=== PATIENT | male | born 1965 | race Hispanic/Latino ===

== ENCOUNTER 2019-11-24 11:06 | Inpatient (IN) | payer MEDICARE, OTHER ==
[~2019-11-24 11:06] MED LIST: EPHEDRINE 25 MG/5 ML SYRINGE ONE; Heparin 10,000 UNITS/ 10 ML VIAL ONE; PROPOFOL 200 MG/20 ML VIAL ONE
[2019-11-24 11:41] LABS: #Basophils 0.1 thou/uL (0.0-0.2); #Eosinphils 0.2 thou/uL (0.0-0.7); #Lymphocytes 3.1 thou/uL (1.20-3.40); #Monocytes 0.7 thou/uL (0.11-0.59); #Neutrophils 5.9 thou/uL (1.40-6.50); %Basophils 0.8 % (0.0-1.0); %Monocytes 6.6 % (0.0-10.0); %Neutrophils 59.6 % (42.0-75.0); Hemoglobin 12.7 g/dL (14.0-18.0); Mean Corpuscular HGB CONC 32.1 g/dL (32.0-36.0); Mean Corpuscular Hemoglobin 29.2 pg (27.0-31.0); Mean Corpuscular Volume 90.8 fL (78.0-98.0); Mean Platelet Volume 9.4 fL (7.4-10.4); Platelet Count 223 thou/uL (130-400); RBC Distribution Width 11.5 % (11.5-14.5); Red Blood Cell (RBC) Count 4.35 mill/uL (4.70-6.10)
[2019-11-24 12:13] LABS: ALT (SGPT) 21 U/L (8-55); AST (SGOT) 18 U/L (5-34); Alkaline Phosphatase 150 U/L (40-110); Anion Gap 16 mmol/L (10-20); BUN (Urea Nitrogen) 37 mg/dL (8.4-25.7); Bilirubin, Total 0.5 mg/dL (0.2-1.2); Calc. Creatinine Clearance 0 mL/min (70-130); Calcium 8.4 mg/dL (7.8-10.44); Carbon Dioxide 16 mmol/L (22-29); Chloride 114 mmol/L (98-107); Estimated GFR-MDRD 14; Globulin 3.3 g/dL (2.4-3.5); Glucose 89 mg/dL (70-105); Potassium 5.6 mmol/L (3.5-5.1); Protein, Total 7.3 g/dL (6.0-8.3); Sodium 140 mmol/L (136-145)
--- NOTE | 2019-11-24 12:19 | RAD ---
SINGLE VIEW CHEST: Date: 11/24/2019 COMPARISON: None. HISTORY: Hyperkalemia and dyspnea. FINDINGS: Single view of the chest shows an enlarged cardiomediastinal silhouette. The patient is status post s ternotomy. There is a small right pleural effusion with adjacent atelectasis. No masses are seen. No pneumothorax is present. IMPRESSION: Right pleural effusion with adjacent atelectasis. POS: EAA
[2019-11-24] MEDS ORDERED: CEFAZOLIN 2 GM in Premix Bag 1 BAG IVPB SCH (13:30)
[2019-11-24] MEDS ORDERED: Bupivacaine PF 0.5% 30 ML VIAL ONE (13:39)
[2019-11-24] MEDS ORDERED: Lidocaine 1% w/Epinephrine 1:100K 20 ML VIAL ONE (13:39)
[2019-11-24] MEDS ORDERED: Heparin 10,000 UNITS/ 10 ML VIAL ONE ×2 (13:40→14:48)
[2019-11-24] MEDS ORDERED: Lidocaine 2% PF 5 ML VIAL ONE (13:42)
[2019-11-24] MEDS ORDERED: Sodium Chloride 0.9% 0 ML ONE (13:43)
[2019-11-24 14:07] LABS: Troponin I 0.018 ng/mL (< 0.028)
--- NOTE | 2019-11-24 14:07 | CON ---
DATE OF CONSULTATION: 11/24/2019 HISTORY OF PRESENT ILLNESS: Mr. Maurice Dubon is a 54-year-old male, followed by Dr. Jain in the past few months for chronic kidney disease. He has diabetes mellitus type 2, on p.r.n. insulin sliding scale, and hypertension. He lives in [place] with his brother. The patient is disabled. The patient presented with hyperkalemia, potassium 6.7, treated, transferred here. Repeat potassium 5.6, CO2 is 16. He is slightly dyspneic. Dr. Jain has asked me to see him regarding placement of dialysis catheter. He has a left antecubital IV which I removed. He has had previous coronary bypass grafting, left radial artery harvest at [facility]. The patient is asymptomatic from coronary artery disease. Plan is for rapid COVID screen, which I have gained approval for and plan is to go to the operating room for a cuffed tunneled hemodialysis catheter and a central line today and tomorrow, most likely a right arm fistula. Examination of his arms reveals poor venous structures. Might have to consider peritoneal dialysis or prosthetic graft. We will discuss with Dr. Jain. ALLERGIES: NONE. SOCIAL HISTORY: Tobacco none. Alcohol none. PAST SURGICAL HISTORY: Coronary artery bypass graft in 2015 in [place] followed by cell tower climber there. PAST MEDICAL HISTORY: Type 2 diabetes mellitus, hypertension. He is on disability, lives with his brother in [place]. Primary care physician is Dr. Barrow in [place]. The patient reports mild dyspnea, progressive. PHYSICAL EXAMINATION: VITAL SIGNS: Blood pressure 140/78, respiratory rate 18, heart rate 68. HEAD, EARS, EYES, NOSE AND THROAT: Unremarkable. LUNGS: Clear to auscultation. CARDIAC: Regular rate and rhythm. ABDOMEN: Soft, nontender. No obvious hernias. EXTREMITIES: No edema. Palpable radial artery right. Radial artery harvest scar, left forearm. Sternotomy scar. ASSESSMENT AND PLAN: 1. Hyperkalemia, treated medically. Mild acidosis. Plan rapid COVID screen, placement of hemodialysis catheter cuff tunneled today and central line. He understands the risks and benefits, and consents. 2. Radial artery harvest scar, left. Plan, right arm primary fistula. May ask him to consider peritoneal dialysis pending vein mapping. My plan is tomorrow or early next week. 3. Diabetes mellitus. 4. Hypertension. LABORATORY DATA: White count 10 and hemoglobin 12. BUN 37, creatinine 4.53, GFR 14, potassium 5.6. MEDICATIONS: No list available. hypertensive, diabetic medications. Job ID: [id number]
[2019-11-24] MEDS ORDERED: Sodium Chloride 0.9% 30 ML ONE (14:48)
[2019-11-24 14:54] LABS: SARS-CoV-2 NAA Rapid Test Not Detected (NotDetected)
[2019-11-24] MEDS ORDERED: Acetaminophen 650 MG Suppository PR PRN (15:12)
[2019-11-24] MEDS ORDERED: Bisacodyl 5 MG TAB PO PRN (15:12)
[2019-11-24] MEDS ORDERED: Acetaminophen 325 MG TAB PO PRN (15:12)
[2019-11-24] MEDS ORDERED: hydrALAZINE 20 MG/ML VIAL SLOW IVP PRN (15:14)
--- NOTE | 2019-11-24 15:35 | HP ---
PRIMARY CARE PROVIDER: Dr. Jameel Hurst in [place], [place]. CHIEF COMPLAINT: Abnormal blood work. HISTORY OF PRESENT ILLNESS: Mr. Dubon is a pleasant 54-year-old gentleman, who was seen in the emergency room at [facility] on November 24, 2019 after he was sent to the emergency room by his kids club attendant, Dr. Jain. The patient has a history of chronic kidney disease. He reports that over the last 3 months, he has been feeling short of breath. He denies any fevers or chills. He reports generalized weakness. He denies any nausea, vomiting, diarrhea, or abdominal pain. Today, he was found to have worsening renal failure as well as hyperkalemia. He was therefore sent to the emergency room. REVIEW OF SYSTEMS: All systems were reviewed and found to be negative except for the pertinent positives mentioned above. PAST MEDICAL HISTORY: Diabetes mellitus type 2, coronary artery disease, myocardial infarction, right eye blindness, and chronic kidney disease. PAST SURGICAL HISTORY: Coronary artery bypass graft x4. SOCIAL HISTORY: The patient denies tobacco use, alcohol use, or recreational drug use. FAMILY HISTORY: Significant for multiple family members with diabetes mellitus. ALLERGIES: NO KNOWN DRUG ALLERGIES. CURRENT MEDICATIONS: 1. Combigan eyedrops, one drop two times a day. 2. Coreg 6.25 mg two times a day. PHYSICAL EXAMINATION: GENERAL: On examination, Mr. Dubon is awake and alert, not in acute distress. VITAL SIGNS: Blood pressure is 170/82, pulse 53, respiratory rate 20, and oxygen saturations 96% on room air. EYES: No scleral icterus. Right eye blindness. ENT: Moist mucosal membranes. No oropharyngeal erythema or exudates. NECK: Supple, nontender, trachea is midline. RESPIRATORY: Accessory muscles of breathing are not active. Chest wall movements are symmetric bilaterally. Lung examination reveals few bibasilar crackles. CARDIOVASCULAR: S1 and S2 are heard, regular. Peripheral pulses palpable. ABDOMEN: Soft, nontender, bowel sounds are heard. NEUROLOGIC: Within the limitation of right eye blindness, cranial nerves 2 through 12 are intact. Deep tendon reflexes 2+. MUSCULOSKELETAL: Power is 5/5 in all 4 extremities. SKIN: No rashes or subcutaneous nodules. LYMPHATIC: No cervical lymphadenopathy. PSYCHIATRIC: Normal mood, normal affect. The patient is oriented to person, place, and time. LABORATORY DATA: Mr. Dubon's labs and investigations were reviewed. I reviewed his electrocardiogram, which shows sinus bradycardia, no ST changes to suggest an acute coronary syndrome. I also reviewed his chest x-ray, which shows a small right pleural effusion. He has normal white count, normocytic anemia with hemoglobin 12.7, normal platelet count, normal sodium, elevated potassium of 5.6, normal anion gap, decreased carbon dioxide of 16, elevated blood urea nitrogen of 37, elevated creatinine of 4.53, elevated alkaline phosphatase of 150, elevated BNP of 856, normal troponin-I, otherwise normal LFTs and COVID-19 rapid test is negative. ASSESSMENT AND PLAN: Mr. Dubon is a pleasant 54-year-old gentleman, who was seen at [facility] on November 24, 2019. His problem list includes: 1. End-stage renal disease, needing dialysis: Mr. Dubon is presenting with end-stage renal disease, needing dialysis. General Surgery Service has been consulted for a placement of dialysis catheter for emergent dialysis. Nephrology Service is also following the patient. We will keep the patient n.p.o. for now. 2. Metabolic acidosis: Likely secondary to uremia. Recheck labs in the morning after dialysis tonight. 3. Hyperkalemia: Mild, no EKG changes. Recheck potassium in the morning following dialysis tonight. 4. Coronary artery disease: Appears to be stable. 5. Hypertension: Continue beta-brianne when the patient is able to take oral medications. 6. Right-sided blindness: Continue eye drops once clarified. Many thanks for allowing me to participate in your patient's care. Please feel free to contact me with any questions or concerns. LEVEL OF RISK: High. LEVEL OF COMPLEXITY: High. Job ID: [id number]
[2019-11-24] MEDS ORDERED: Propofol 500 MG/50 ML VIAL ONE (15:38)
[2019-11-24] MEDS ORDERED: Fentanyl 100 MCG/2 ML VIAL ONE (15:38)
[2019-11-24] MEDS ORDERED: Lidocaine 2% Jelly 5 ML TUBE ONE (15:38)
--- NOTE | 2019-11-24 15:40 | ULT ---
EXAM: Vein mapping for dialysis access HISTORY: End-stage renal disease. TECHNIQUE: Multiplanar grayscale and color Doppler images were obtained in a bilateral upper extremit y venous ultrasound. Spectral analysis of the Doppler waveforms of the vessels were performed. FINDINGS: The bilateral internal jugular veins and subclavian veins are patent without evidence of th rombus. Right brachial artery 4.9 mm Right radial artery 2.2 mm Right ulnar artery 2.2 mm Left brachial artery 4.4 mm Left radial artery 1.2 mm Left ulnar artery 2.2 mm RIGHT CEPHALIC VEIN in millimeters 1.8 -- Shoulder 1.5 -- Upper arm 1.3 -- Mid upper arm 1.1-- Just proximal to the elbow 2.4 -- Just distal to the elbow 2.2 -- Forearm 1.5 -- Wrist RIGHT BASILIC VEIN in millimeters 3.6 -- Shoulder 3.4 -- Upper arm 3.7 -- Mid upper arm 3.3 -- Just proximal to the elbow 1.6 -- Just distal to the elbow 1.4 -- Forearm 1.1 -- Wrist LEFT CEPHALIC VEIN in millimeters 2.4 -- Shoulder 2.3 -- Upper arm 2.4 -- Mid upper arm 2.0 -- Just proximal to the elbow 2.1 -- Just distal to the elbow 1.1 -- Forearm 1.6 -- Wrist LEFT BASILIC VEIN in millimeters 3.5 -- Shoulder 3.4 -- Upper arm 3.7 -- Mid upper arm 3.6 -- Just proximal to the elbow 1.0 -- Just distal to the elbow 0.9 -- Forearm 0.8 -- Wrist IMPRESSION: Vein mapping for dialysis access as above
[2019-11-24] MEDS ORDERED: traMADol HCl 50 MG TAB PO PRN (16:55)
[2019-11-24] MEDS ORDERED: Promethazine HCl 25 MG/ML VIAL IM PRN (17:03)
[2019-11-24] MEDS ORDERED: Ondansetron HCl/PF 4 MG/2 ML Vial IVP PRN (17:03)
[2019-11-24] MEDS ORDERED: Promethazine HCl 25 MG/ML VIAL SLOW IVP PRN (17:03)
--- NOTE | 2019-11-24 17:03 | RAD ---
XR Chest 1 View Portable HISTORY: Central line placement COMPARISON: Earlier exam of same date at 11:44 AM FINDINGS: There has been interval placement of a left internal jugular central venous catheter with tip in the projection of the right atrium. A right internal jugular dialysis catheter has been placed with tip in the projection of the cavoatrial junction. No pneumothorax is seen. Right-sided pleural effusi on is again seen. Changes of median sternotomy are again noted. The heart size stable..
[2019-11-24 19:26] LABS: HBSAB Concentration Less than 8.00 mIU/mL; Hep B Core Total Ab Non-Reactive (NonReactive); Hep B Core Total Index 0.13 S/CO (0-0.79); Hep B Surf AB Non-Reactive (NonReactive); Hep C IgG Ab Non-Reactive (NonReactive); Hep C Index 0.09 S/CO (0-0.79)
--- NOTE | 2019-11-24 20:43 | CON ---
DATE OF CONSULTATION: 11/24/2019 HISTORY OF PRESENT ILLNESS: Mr. Dubon is a 54-year-old male with chronic renal failure from diabetic nephropathy. He was seen in the clinic today and last November 17, his potassium was noted at 6.7. Due to the worsening renal function as well as hyperkalemia, he was sent to the ER for further management. Repeat potassium in the ER showed a value of 5.6. Due to the significant drop of his GFR to 14 mL/minute, it was decided to initiate dialysis with this patient. REVIEW OF SYSTEMS: No chest pain. No shortness of breath. Positive for generalized weakness. No tremors. No asterixis. Decreased appetite, but no nausea, no vomiting, no gross hematuria, no dysuria, no frequency, no productive cough. No fever or chills. No headache. No diplopia. No syncopal episode. No urinary frequency. No abdominal pain. No fever or chills. HOME MEDICATIONS: 1. Kayexalate 30 g every week - currently not taking. 2. Levemir 10 units subcu b.i.d. - p.r.n., has not taken it for quite some time. 3. Nifedipine 90 mg ER tablet once a day. 4. Atorvastatin 40 mg tablet at bedtime. 5. Januvia 100 mg tablet once a day. 6. Aspirin 81 mg tablet once a day. 7. Carvedilol 6.25 mg p.o. b.i.d. PAST MEDICAL HISTORY: Chronic renal failure from diabetic nephropathy, type 2 diabetes mellitus at least 20 years duration, diabetic retinopathy status post acute kidney injury, right eye blindness, hyperlipidemia. PAST SURGICAL HISTORY: Status post cardiac cath, status post CABG, status post femoral dialysis catheter placement. ALLERGIES: NONE. TRAUMA: None. IMMUNIZATIONS: Up to date. HOSPITALIZATIONS: Please see past medical history. SOCIAL HISTORY: The patient is , lives in [place]. He lives with his younger brother. He has one child, aged 16. Smoked for 5 years, one pack every 2 weeks. Occasional alcohol. Status post marijuana use when he was younger. 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 Education, some college courses. FAMILY HISTORY: No family history of ESRD. PHYSICAL EXAMINATION: VITAL SIGNS: Blood pressure is noted at 130/70, heart rate 70, respiratory rate 12. GENERAL: The patient is awake, alert, comfortable, not in overt distress. SKIN: Adequate turgor. HEENT: Slightly pale conjunctivae. Anicteric sclerae. No neck mass. No carotid bruits. No JVD. Right eye blindness. LUNGS: Decreasd breath sounds. No wheezing. No crackles. HEART: Normal sinus rhythm. No murmurs, no gallops, no rubs. ABDOMEN: Globular, soft, nontender. No masses. EXTREMITIES: Trace edema. No deformities. NEUROLOGIC: Moving all extremities. No tremors. No asterixis. No ataxia. LABORATORY DATA: Laboratories of November 24, 2019: COVID is negative. Sodium 140, potassium 5.6, chloride 104, carbon dioxide 16, BUN 37, creatinine 4.53, GFR 14 mL/minute, calcium 8.4, AST 18, ALT 21, albumin 4. BNP is 856. Chest x-ray of November 24, 2019, shows right pleural effusion with adjacent atelectasis. Laboratories of November 24, 2019: CBC; white count 10, hemoglobin 12.7. ASSESSMENT AND PLAN: 1. Chronic renal failure from diabetic nephropathy, progressive azotemia. GFR has significantly dropped down to 14 mL/minute. Due to his generalized malaise and decreased appetite, we will proceed with hemodialysis with this patient. He was also at one time noted to be hyperkalemic with potassium of 6.7 last week and he is not compliant with his Kayexalate. For these reasons, we will initiate dialysis. We will do a 1-hour hemodialysis today and a 2-hour hemodialysis in a.m. We will slowly increase this and prolong it by 1 hour every dialysis day until we reach 3.5 hours of dialysis. Surgery has been consulted for placement of a cuffed hemodialysis catheter placement. 2. Metabolic acidosis. Initiate dialysis. We will recheck CBC and basic metabolic. We will do PPD and hepatitis profile. Consult Case Management for outpatient dialysis placement in [place]. 3. Recheck CBC and basic metabolics, check PTH as well as phosphorus in a.m. Job ID: [id number] [facility]
[2019-11-24] MEDS ORDERED: Tuberculin PPD 0.1 ML VIAL I-DERMAL SCH (21:00)
--- NOTE | 2019-11-24 21:54 | OP ---
DATE OF PROCEDURE: 11/24/2019 PREOPERATIVE DIAGNOSES: End-stage renal disease, acidosis, hyperkalemia, poor IV access, history of coronary artery bypass grafting using left radial artery, diabetic, hypertension. POSTOPERATIVE DIAGNOSES: End-stage renal disease, acidosis, hyperkalemia, poor IV access, history of coronary artery bypass grafting using left radial artery, diabetic, hypertension. PROCEDURES PERFORMED: Right IJ cuffed tunneled hemodialysis catheter, left IJ central line triple lumen, fluoroscopy and ultrasound used. ANESTHESIA: Intravenous sedation and local 0.5% Marcaine 30 mL mixed with 1% Xylocaine with epinephrine 20 mL. DESCRIPTION OF PROCEDURE: The patient was taken to the operating room where under intravenous sedation, neck and chest were prepared with ChloraPrep and draped in routine fashion. Local anesthetic mixture was infiltrated into skin and subcutaneous tissue about the operative site. Ultrasound guidance was used to cannulate both the right and left internal jugular veins. J-wire was threaded. Trocar catheter was removed. Skin site was enlarged sharply on both sides. Seldinger technique was used to place a triple-lumen catheter on the left IJ, securing it with 3-0 nylon suture, aspirated each port of blood, and flushed with saline solution. On the right side, stab incision was made in the right chest and the J-wire entry site and using a tunneling device, the pre-curved [employer] cuffed tunneled hemodialysis catheter tunneled between 2 incisions, placed the fabric cuff beneath the skin exit site. Catheter was secured with 2 interrupted suture of 3-0 nylon. Sterile dressings were applied. Smaller and medium-sized dilators were placed over the J-wire into the internal jugular vein and removed. Dilator and Peel-Away sheath placed over the J-wire in superior vena cava, and J-wire and dilator removed. Catheter placed with the Peel-Away sheath. Peel-Away sheath removed. Platysma was approximated with 4-0 Monocryl, skin with subdermal 4-0 Monocryl, and [place] glue applied. Each port aspirated of blood and flushed with saline solution and heparinized saline solution with 1000 units of heparin/mL, indicating volume of the port. Final fluoroscopic images revealed good line placement. The patient tolerated the procedure well. Job ID: [id number]
[2019-11-24 23:09] LABS: HBSAg Index 0.21 S/CO (0-0.99); Hep B Surf Ag NonReactive S/CO (NonReactive)
[2019-11-24] MEDS ORDERED: NIFEdipine XL 90 MG TAB PO SCH (23:30)
[2019-11-24 23:40] VITALS: BMI 25.1
[2019-11-24] MEDS: Acetaminophen 500 MG TAB PO PRN (23:51)
[2019-11-25 05:07] LABS: #Basophils 0.1 thou/uL (0.0-0.2); #Eosinphils 0.3 thou/uL (0.0-0.7); #Lymphocytes 2.6 thou/uL (1.20-3.40); #Neutrophils 4.7 thou/uL (1.40-6.50); %Eosinophils 3.2 % (0.0-10.0); %Lymphocytes 30.2 % (21.0-51.0); %Monocytes 11.2 % (0.0-10.0); %Neutrophils 54.5 % (42.0-75.0); Hemoglobin 11.6 g/dL (14.0-18.0); Mean Corpuscular HGB CONC 33.5 g/dL (32.0-36.0); Mean Corpuscular Hemoglobin 30.1 pg (27.0-31.0); Mean Corpuscular Volume 89.8 fL (78.0-98.0); Mean Platelet Volume 9.3 fL (7.4-10.4); Platelet Count 193 thou/uL (130-400); RBC Distribution Width 11.3 % (11.5-14.5); Red Blood Cell (RBC) Count 3.86 mill/uL (4.70-6.10); White Blood Cell (WBC) Count 8.7 thou/uL (4.8-10.8)
[2019-11-25 05:29] LABS: Phosphorus 3.4 mg/dL (2.3-4.7)
[2019-11-25 05:31] LABS: Anion Gap 13 mmol/L (10-20); BUN (Urea Nitrogen) 31 mg/dL (8.4-25.7); Calc. Creatinine Clearance 22 mL/min (70-130); Calcium 8.1 mg/dL (7.8-10.44); Carbon Dioxide 21 mmol/L (22-29); Chloride 111 mmol/L (98-107); Estimated GFR-MDRD 16; Glucose 158 mg/dL (70-105); Potassium 5.1 mmol/L (3.5-5.1); Sodium 140 mmol/L (136-145)
[2019-11-25] MEDS ORDERED: Propofol 1,000 MG/100 ML VIAL IV ONE (07:23)
[2019-11-25] MEDS: Brimonidine Tartrate 0.2% Ophth Soln 5 ml Bottle EA EYE SCH ×2 (08:07→21:34)
[2019-11-25] MEDS: Atorvastatin Calcium 40 MG TAB PO SCH (08:08)
[2019-11-25] MEDS: NIFEdipine XL 90 MG TAB PO SCH (08:08)
[2019-11-25] MEDS: Timolol 0.5% Ophth Soln 5 ml Bottle EA EYE SCH ×2 (08:11→21:34)
[2019-11-25] MEDS ORDERED: Bupivacaine HCl 0.5%/Epinephrine 1:200,000/PF 30 ml Vial ONE ×2 (08:52→10:21)
[2019-11-25] MEDS ORDERED: Carvedilol 6.25 MG TAB PO SCH (09:00)
[2019-11-25] MEDS ORDERED: Fentanyl 100 MCG/2 ML VIAL ONE ×2 (09:44→10:27)
[2019-11-25] MEDS ORDERED: Midazolam HCl 2 mg/2 ml Vial ONE ×2 (09:44→10:27)
[2019-11-25] MEDS ORDERED: Protamine Sulfate 50 MG/5 ML VIAL ONE (10:21)
[2019-11-25] MEDS ORDERED: Heparin 5,000 UNITS/ML VIAL ONE (10:21)
[2019-11-25] MEDS ORDERED: Lidocaine 2% PF 5 ML VIAL ONE ×2 (10:21→10:22)
[2019-11-25] MEDS ORDERED: Ketamine 50 MG/ML (10ML VIAL) ONE (10:27)
[2019-11-25] MEDS ORDERED: Heparin 10,000 UNITS/ 10 ML VIAL ONE (12:15)
[2019-11-25] MEDS ORDERED: Ondansetron HCl/PF 4 MG/2 ML Vial IVP PRN (12:18)
--- NOTE | 2019-11-25 13:24 | RAD ---
XR Chest 1 View Portable HISTORY: Shortness of breath COMPARISON: Previous day FINDINGS: There is been interval increase in size of the right pleural effusion. Remainder the exam i s otherwise stable
[2019-11-25] MEDS ORDERED: Iopamidol-370 76% 500 ML 1 ML ONE (13:28)
[2019-11-25 13:33] LABS: Actual Bicarbonate (HCO3a) 18.1 mEq/L (22-28); Base Excess (BEa) -8.1 mEq/L (-2.0 to +3.0); CO2 Tension 39.8 mmHg (35.0-45.0); Calcium, Ionized (arterial) 1.14 mmol/L (1.12-1.30); Hemoglobin (Hb) 11.7 g/dL (14.0-18.0); Potassium - ABG Lab 5.74 mmol/L (3.70-5.30); pH, Arterial 7.28 (7.35-7.45)
[2019-11-25 13:37] LABS: Puncture Site LBA
[2019-11-25] MEDS ORDERED: CEFAZOLIN 2 GM in Premix Bag 1 BAG IVPB SCH (14:00)
--- NOTE | 2019-11-25 14:18 | PRG ---
DATE OF SERVICE: 11/25/2019 Maurice Dubon today had a right arm fistula. He will need a basilic vein transposition fistula as an outpatient in the next 3 to 4 weeks. He should see me in 3 to 4 weeks and we will discuss this. The patient today had right arm regional anesthesia and has some dyspnea, probably result of phrenic nerve weakness and fluid overload and preexisting dyspnea and orthopnea. He is undergoing hemodialysis now. On evaluation postop, it is noted that his hemodialysis catheter cuff is probably extruded outside the skin. This can be used for dialysis at this time without problems. I have scheduled him Thursday to replace his hemodialysis catheter due to his malfunction of his current catheter with cuff extruded outside the skin. Job ID: [id number]
[2019-11-25] MEDS ORDERED: Dextrose 50% Abboject 50 ML SYRINGE SLOW IVP PRN (15:20)
[2019-11-25] MEDS ORDERED: Dextrose 5% in Water 1,000 ML IV PRN (15:20)
[2019-11-25] MEDS ORDERED: hydrALAZINE 20 MG/ML VIAL SLOW IVP PRN (15:48)
--- NOTE | 2019-11-25 15:50 | PDOC.HOSPP ---
- Subjective Encounter Date: 11/25/19 Encounter Time: 15:48 Subjective: For follow-up regarding end-stage renal disease needing dialysis. He had AV fistula surgery earlier today. Following that, he went to dialysis. While there, before dialysis was started, patient was noted to be bradycardic and tachypneic and needing supplemental oxygen. He was evaluated both by myself and general surgeon. - Objective Vital Signs & Weight: Vital Signs (12 hours) Temp Pulse Resp BP BP Pulse Ox 11/25/19 08:11 61 155/72 H 11/25/19 08:08 61 155/72 H 11/25/19 07:49 98.5 F 61 16 155/72 H 92 L 11/25/19 04:00 98.1 F 69 23 H 152/72 H 90 L Weight Weight 160 lb 11.2 oz Result Diagrams: 11/25/19 04:42 11/25/19 04:42 Additional Labs: Accuchecks 11/25/19 11/25/19 11/24/19 12:40 09:41 21:30 POC Glucose 188 H 111 H 117 H I reviewed patient's labs and MAR EKG Reviewed by me: Yes (Telemetry: Sinus bradycardia) Hospitalist ROS - Review of Systems Respiratory: reports: SOB with excertion Cardiovascular: reports: orthopnea. denies: chest pain, palpitations, paroxysmal noc. dyspnea, edema, light headedness Gastrointestinal: denies: nausea, vomiting, abdominal pain, diarrhea, constipation, melena, hematochezia - Medication Medications: Active Medications Generic Name Dose Route Start Last Admin Trade Name Freq PRN Reason Stop Dose Admin Acetaminophen 1,000 mg 11/24/19 16:55 11/24/19 23:51 Acetaminophen 500 Mg Tab PO 1,000 mg Q6H PRN Administration Moderate to Severe Pain (6-10) Atorvastatin Calcium 40 mg 11/25/19 09:00 11/25/19 08:08 Atorvastatin Calcium 40 Mg Tab PO 40 mg DAILY ERWIN Administration Brimonidine Tartrate 1 drop 11/25/19 09:00 11/25/19 08:07 Brimonidine Tartrate 0.2% Ophth Soln 5 Ml Bottle EA EYE 1 drop BID ERWIN Administration Nifedipine 90 mg 11/25/19 09:00 11/25/19 08:08 Nifedipine Xl 90 Mg Tab PO 90 mg DAILY ERWIN Administration Timolol Maleate 1 drop 11/25/19 09:00 11/25/19 08:11 Timolol 0.5% Ophth Soln 5 Ml Bottle EA EYE 1 drop BID ERWIN Administration - Exam General Appearance: awake alert Eye: anicteric sclera ENT: moist mucosa Neck: supple Heart: RRR Respiratory: CTAB Gastrointestinal: soft, non-tender Extremities: no cyanosis Skin: no rashes Musculoskeletal: no muscle wasting Psychiatric: normal affect, normal behavior Hosp A/P (1) End-stage renal disease needing dialysis Code(s): N18.6 - END STAGE RENAL DISEASE; Z99.2 - DEPENDENCE ON RENAL DIALYSIS Status: Acute (2) Shortness of breath Code(s): R06.02 - SHORTNESS OF BREATH Status: Acute (3) Hypertension Code(s): I10 - ESSENTIAL (PRIMARY) HYPERTENSION Status: Chronic (4) Dyslipidemia Code(s): E78.5 - HYPERLIPIDEMIA, UNSPECIFIED Status: Chronic (5) Diabetes mellitus type 2 in nonobese Code(s): E11.9 - TYPE 2 DIABETES MELLITUS WITHOUT COMPLICATIONS Status: Chronic - Plan Patient was dialyzed yesterday, to be dialyzed again today. Shortness of breath likely secondary to phrenic nerve block. However, d-dimer is also elevated. Will check CT angiogram to rule out pulmonary embolism. Hold beta-brianne for sinus bradycardia. Add PRN IV hydralazine for blood pressure spikes. Continue statin. Continue Januvia. Add Accu-Cheks and insulin sliding scale.
--- NOTE | 2019-11-25 17:48 | CT ---
CT ANGIO OF CHEST PERFORMED WITH INTRAVENOUS CONTRAST ENHANCEMENT WITH 3D RECONSTRUCTIONS: 11/25/19 HISTORY: Shortness of breath. Left sided central line is present. There has also been placement of a right sided dual lumen cathete r. The catheter tips are in the distal superior vena cava right atrium junction region. No pneumothor ax is identified. There is a large right pleural effusion. Moderate left sided effusion. There is prominent atelectatic changes in both lung bases. Also air bronchograms within the right middle lobe which could be on the basis of atelectasis or infiltrate. Thoracic aorta is normal in caliber. There is good pulmonary artery opacification and no CT evidence for pulmonary embolus. The visualized liver parenchyma shows no focal findings. The gallbladder appears distended. Subtle in creased attenuation partially visualized in the gallbladder. I cannot exclude this as small stones. IMPRESSION: 1. Large right and moderate left pleural effusion with prominent atelectatic changes in both bas es. Also air bronchograms and right middle lobe parenchymal changes probably also on the basis of ate lectasis. 2. No CT evidence for pulmonary embolus. 3. Mildly distended gallbladder with questionable small stones. POS: KG
--- NOTE | 2019-11-25 17:49 | OP ---
DATE OF PROCEDURE: 11/25/2019 PREOPERATIVE DIAGNOSES: End-stage renal disease, left radial artery harvest for past CABG. POSTOPERATIVE DIAGNOSES: End-stage renal disease, left radial artery harvest for past CABG. PROCEDURES PERFORMED: Right arm primary fistula, perforating branch antecubital vein to the proximal radial artery, which was of excellent caliber without arteriosclerotic disease, outflow probably primary basilic vein. Stump of the cephalic vein, patent, but seen to obstruct in the distal upper arm (no Doppler signal heard in proximal upper arm and coronary dilators would not pass beyond this). The patient will likely need a basilic vein transposition fistula in the future. ANESTHESIA: Regional TIVA. DESCRIPTION OF PROCEDURE: The patient was taken to the operating room, where under regional anesthesia, right upper extremity was prepared with ChloraPrep and draped in routine fashion. Incision was made in the proximal volar forearm, carried down through skin and subcutaneous tissue. Antecubital vein was of good size and it bifurcated into a smaller cephalic and a larger basilic vein. Perforating branch dissected free. Branches were divided between 4-0 silk ties and clips. The patient was given 6000 units of heparin intravenously. Proximal radial artery, ulnar, and brachial artery dissected free. Perforating branch antecubital vein spatulated over branch point and interrogated with coronary dilators, passing coronary dilators from 2 mm to 4 mm dilator unobstructed throughout the basilic vein. The coronary dilators would not pass beyond 3 to 4 cm into the cephalic vein. The vein was flushed with heparinized saline solution. An atraumatic bulldog clamp was applied and longitudinal arteriotomy was made sharply in the proximal radial artery up near the confluence to the ulnar artery and end vein to side radial artery anastomosis was created with continuous suture of 6-0 Prolene. After completion of anastomosis, small branch was ligated with 4-0 silk ties. Vascular clamps were released. There was good Doppler signal in the basilic vein outflow. The cephalic vein stump in the distal upper arm had Doppler signal, but beyond about 6 or 8 cm, I could not find a Doppler signal in the proximal upper arm indicating the patient would probably need a basilic vein transposition fistula. Good hemostasis was noted. The patient was given 25 mg of protamine intravenously by Anesthesia. Subcutaneous tissue was approximated with 3-0 Monocryl, skin with subdermal 4-0 Monocryl, and [place] glue applied. The patient tolerated the procedure well. Job ID: [id number]
--- NOTE | 2019-11-25 19:29 | PRG ---
DATE OF SERVICE: 11/25/2019 HISTORY: Mr. Dubon is a 54-year-old male with ESRD from diabetic nephropathy. He was initially on dialysis due to the hyperkalemia and uremic sign and symptoms. A cuffed hemodialysis catheter has been placed. After the said procedure, the patient became acutely short of breath and was hypoxemic. He underwent hemodialysis with fluid removal. He also underwent a CT scan of the chest to rule out pulmonary embolism. He does not have pulmonary embolism based on this CAT scan; however, he did have findings of significant pleural effusion-large on the right side and moderate on the left side. No other complaints today. He is feeling better. PHYSICAL EXAMINATION: VITAL SIGNS: Blood pressure is 151/70, heart rate 81, respiratory rate 19, temperature 97.7, O2 saturation 98%. GENERAL: The patient is awake, comfortable, not in distress. SKIN: Adequate turgor. HEENT: He has pinkish conjunctivae. Anicteric sclerae. No neck mass. No carotid bruits. No JVD. CHEST: No deformities. LUNGS: Clear breath sounds. HEART: Normal sinus rhythm. No murmurs, gallops, or rubs. ABDOMEN: Globular, soft, nontender. No masses. EXTREMITIES: No edema. No deformities. MEDICATIONS: Medications of November 25, 2019, was reviewed. LABORATORY DATA: November 25, 2019, white count 8.7, hemoglobin 11.6. Sodium 140, potassium 5.1, chloride 111, carbon dioxide 21, BUN 31, creatinine 3.96, GFR 16 mL/minute, calcium 8.1, phosphorus 3.4. PTH is 257. On November 25, 2019, chest x-ray shows bilateral pleural effusion with the right larger than the left. ASSESSMENT/PLAN: 1. No shortness of breath/bilateral pleural effusion. We will attempt to max out fluid removal with dialysis. If not successful, consider doing a therapeutic thoracentesis. The patient is scheduled for dialysis tomorrow. 2. Chronic renal failure/end-stage renal disease-hemodialysis tomorrow for 3 hours. We will max out fluid removal as tolerated by the patient. 3. Awaiting outpatient dialysis placement. Job ID: [id number] MTDD
[2019-11-25] MEDS ORDERED: FLU VACC QS2020-21(6MOS UP)/PF 60 MCG/0.5 ML SYRINGE IM ONE (21:00)
[2019-11-25] MEDS: HumaLOG 300 UNITS/3 ML VIAL SC PRN (21:49)
[2019-11-26 06:01] LABS: #Eosinphils 0.1 thou/uL (0.0-0.7); #Lymphocytes 2.5 thou/uL (1.20-3.40); #Monocytes 1.2 thou/uL (0.11-0.59); #Neutrophils 5.4 thou/uL (1.40-6.50); %Basophils 0.3 % (0.0-1.0); %Eosinophils 1.5 % (0.0-10.0); %Lymphocytes 27.1 % (21.0-51.0); %Monocytes 12.5 % (0.0-10.0); %Neutrophils 58.6 % (42.0-75.0); Hemoglobin 10.3 g/dL (14.0-18.0); Mean Corpuscular HGB CONC 33.6 g/dL (32.0-36.0); Mean Corpuscular Volume 89.5 fL (78.0-98.0); Mean Platelet Volume 9.3 fL (7.4-10.4); Platelet Count 156 thou/uL (130-400); RBC Distribution Width 11.4 % (11.5-14.5); Red Blood Cell (RBC) Count 3.44 mill/uL (4.70-6.10); White Blood Cell (WBC) Count 9.2 thou/uL (4.8-10.8)
[2019-11-26 06:20] LABS: Anion Gap 14 mmol/L (10-20); BUN (Urea Nitrogen) 26 mg/dL (8.4-25.7); Calc. Creatinine Clearance 23 mL/min (70-130); Calcium 7.9 mg/dL (7.8-10.44); Carbon Dioxide 23 mmol/L (22-29); Chloride 105 mmol/L (98-107); Estimated GFR-MDRD 16; Glucose 111 mg/dL (70-105); Potassium 4.3 mmol/L (3.5-5.1); Sodium 138 mmol/L (136-145)
[2019-11-26] MEDS: Brimonidine Tartrate 0.2% Ophth Soln 5 ml Bottle EA EYE SCH ×2 (08:54→20:23)
[2019-11-26] MEDS: Timolol 0.5% Ophth Soln 5 ml Bottle EA EYE SCH ×2 (08:55→20:23)
[2019-11-26] MEDS ORDERED: Epoetin (ESRD) 20,000 UNITS/ML SC SCH (10:00)
--- NOTE | 2019-11-26 10:16 | PRG ---
DATE OF SERVICE: 11/26/2019 SUBJECTIVE: Mr. Dubon is a 54-year-old male with chronic renal failure from diabetic nephropathy and was admitted for initiation of dialysis. He was noted to be hyperkalemic and was clinically uremic. He voices no new complaints. In the interim, he had a right AV fistula placed as well as cuffed hemodialysis catheter. He was noted to be short of breath yesterday. At that time, a CT scan of the chest was done, which showed no pulmonary embolism, but he was found to have significant large to moderate pleural effusion. This morning, he has no complaints. His shortness of breath is usually with exertion. OBJECTIVE: VITAL SIGNS: Blood pressure is 169/79, heart rate 68, respiratory rate 20, temperature 98.3, O2 saturation 97%. GENERAL: The patient is awake, alert, sitting comfortable, not in overt distress. SKIN: Adequate turgor. HEENT: He has slightly pale conjunctivae. Anicteric sclerae. No neck mass. No carotid bruits. No JVD. CHEST: No deformities. LUNGS: Decreased breath sounds heart. HEART: Normal sinus rhythm. No murmurs, no gallops, no rubs. ABDOMEN: Globular, soft, nontender. No masses EXTREMITIES: No edema, no deformities. MEDICATIONS: Medications of November 26, 2019, reviewed. LABORATORY DATA: Laboratories of November 26, 2019; white count 9.2, hemoglobin 10.3. Sodium 138, potassium 4.3, chloride 105, carbon dioxide 23, BUN 26, creatinine 3.95, glucose 111, calcium 7.9. ASSESSMENT AND PLAN: 1. Chronic renal failure/end-stage renal disease-patient undergoing daily dialysis. Due to significant pleural effusion and shortness of breath, we will try to max out fluid removal to attempt between 3 and 4 L of fluid as tolerated by the patient. Our plan is for him to undergo another dialysis treatment for fluid removal. 2. Borderline anemia. We will start iron supplementation and Epogen. 3. Secondary hyperparathyroidism. We will initiate calcitriol 0.25 mcg tablet daily. We will recheck CBC, basic metabolic profile in a.m. Job ID: [id number]
[2019-11-26] MEDS ORDERED: EPOETIN ALFA-EPBX (ESRD) 4,000 UNIT/ML VIAL SC SCH (12:00)
[2019-11-26] MEDS ORDERED: Heparin 10,000 UNITS/ 10 ML VIAL ONE (12:20)
[2019-11-26] MEDS: NIFEdipine XL 90 MG TAB PO SCH (14:09)
[2019-11-26] MEDS: Atorvastatin Calcium 40 MG TAB PO SCH (14:09)
--- NOTE | 2019-11-26 16:35 | PDOC.HOSPP ---
- Subjective Encounter Date: 11/26/19 Encounter Time: 11:00 Subjective: Patient seen for follow-up regarding end-stage renal disease needing dialysis. Reports feeling better. - Objective Vital Signs & Weight: Vital Signs (12 hours) Temp Pulse Resp BP Pulse Ox 11/26/19 15:12 99 F 71 20 152/69 H 98 11/26/19 14:09 74 11/26/19 13:23 98.7 F 69 16 171/83 H 99 11/26/19 08:55 75 11/26/19 07:18 98.3 F 68 20 169/79 H 97 Weight Weight 160 lb 11.2 oz I&O: 11/25/19 11/26/19 11/27/19 06:59 06:59 06:59 Intake Total 680 360 Output Total 650 3800 Balance 30 -3440 Result Diagrams: 11/26/19 05:45 11/26/19 05:45 Additional Labs: Accuchecks 11/26/19 11/26/19 11/25/19 11:00 05:15 21:16 POC Glucose 146 H 115 H 230 H 11/25/19 16:43 POC Glucose 134 H I reviewed patient's labs and MAR EKG Reviewed by me: Yes (Telemetry: Normal sinus rhythm) Hospitalist ROS - Review of Systems Respiratory: reports: SOB with excertion Cardiovascular: denies: chest pain, palpitations, orthopnea, paroxysmal noc. dyspnea, edema, light headedness Gastrointestinal: denies: nausea, vomiting, abdominal pain, diarrhea, constipation, melena, hematochezia - Medication Medications: Active Medications Generic Name Dose Route Start Last Admin Trade Name Tomasq PRN Reason Stop Dose Admin Acetaminophen 1,000 mg 11/24/19 16:55 11/24/19 23:51 Acetaminophen 500 Mg Tab PO 1,000 mg Q6H PRN Administration Moderate to Severe Pain (6-10) Atorvastatin Calcium 40 mg 11/25/19 09:00 11/26/19 14:09 Atorvastatin Calcium 40 Mg Tab PO 40 mg DAILY ERWIN Administration Brimonidine Tartrate 1 drop 11/25/19 09:00 11/26/19 08:54 Brimonidine Tartrate 0.2% Ophth Soln 5 Ml Bottle EA EYE 1 drop BID ERWIN Administration Epoetin Alireza-epbx 7,500 unit 11/26/19 12:00 11/26/19 14:11 Epoetin Alireza-Epbx (Esrd) 4,000 Unit/Ml Vial SC 7,500 unit Q7D ERWIN Administration Insulin Human Lispro 0 units 11/25/19 15:20 11/25/19 21:49 Humalog 300 Units/3 Ml Vial SC 3 unit .MILD SLIDING SCALE PRN Administration Mild Correctional Scale Nifedipine 90 mg 11/25/19 09:00 11/26/19 14:09 Nifedipine Xl 90 Mg Tab PO 90 mg DAILY ERWIN Administration Timolol Maleate 1 drop 11/25/19 09:00 11/26/19 08:55 Timolol 0.5% Ophth Soln 5 Ml Bottle EA EYE 1 drop BID ERWIN Administration - Exam General Appearance: awake alert Eye: anicteric sclera ENT: moist mucosa Neck: supple Heart: RRR Respiratory: CTAB Gastrointestinal: soft, non-tender Extremities: no cyanosis Skin: no rashes Psychiatric: normal affect, normal behavior Hosp A/P (1) End-stage renal disease needing dialysis Code(s): N18.6 - END STAGE RENAL DISEASE; Z99.2 - DEPENDENCE ON RENAL DIALYSIS Status: Acute (2) Pleural effusion Code(s): J90 - PLEURAL EFFUSION, NOT ELSEWHERE CLASSIFIED Status: Acute (3) Hypertension Code(s): I10 - ESSENTIAL (PRIMARY) HYPERTENSION Status: Chronic (4) Dyslipidemia Code(s): E78.5 - HYPERLIPIDEMIA, UNSPECIFIED Status: Chronic (5) Diabetes mellitus type 2 in nonobese Code(s): E11.9 - TYPE 2 DIABETES MELLITUS WITHOUT COMPLICATIONS Status: Chronic - Plan Patient initiated on dialysis during this hospitalization. Shortness of breath has improved, likely secondary to right-sided pleural effusion. Continue PRN IV hydralazine for blood pressure spikes. Continue statin. Continue Januvia. Continue Accu-Cheks and insulin sliding scale.
[2019-11-26] MEDS: Ferrous Sulfate 325 MG TAB PO SCH (17:56)
[2019-11-26] MEDS: HumaLOG 300 UNITS/3 ML VIAL SC PRN (17:56)
[2019-11-26] MEDS: Latanoprost 0.005% Ophth Soln 2.5 ml Bottle L EYE SCH (20:23)
[2019-11-26] MEDS ORDERED: READ PPD TEST SITE PO SCH (21:00)
[2019-11-27 05:07] LABS: #Eosinphils 0.2 thou/uL (0.0-0.7); #Lymphocytes 2.2 thou/uL (1.20-3.40); #Neutrophils 4.8 thou/uL (1.40-6.50); %Basophils 0.3 % (0.0-1.0); %Eosinophils 2.8 % (0.0-10.0); %Lymphocytes 27.1 % (21.0-51.0); %Monocytes 12.1 % (0.0-10.0); %Neutrophils 57.8 % (42.0-75.0); Hemoglobin 10.4 g/dL (14.0-18.0); Mean Corpuscular HGB CONC 33.4 g/dL (32.0-36.0); Mean Corpuscular Volume 89.7 fL (78.0-98.0); Mean Platelet Volume 9.3 fL (7.4-10.4); Platelet Count 151 thou/uL (130-400); RBC Distribution Width 11.3 % (11.5-14.5); Red Blood Cell (RBC) Count 3.46 mill/uL (4.70-6.10); White Blood Cell (WBC) Count 8.3 thou/uL (4.8-10.8)
[2019-11-27 05:28] LABS: Anion Gap 14 mmol/L (10-20); BUN (Urea Nitrogen) 16 mg/dL (8.4-25.7); Calc. Creatinine Clearance 22 mL/min (70-130); Carbon Dioxide 27 mmol/L (22-29); Chloride 104 mmol/L (98-107); Estimated GFR-MDRD 16; Glucose 84 mg/dL (70-105); Potassium 3.6 mmol/L (3.5-5.1); Sodium 141 mmol/L (136-145)
[2019-11-27] MEDS: Atorvastatin Calcium 40 MG TAB PO SCH (10:08)
[2019-11-27] MEDS: Ferrous Sulfate 325 MG TAB PO SCH ×2 (10:09→17:56)
[2019-11-27] MEDS: Calcitriol 0.25 MCG CAP PO SCH (10:09)
[2019-11-27] MEDS: Brimonidine Tartrate 0.2% Ophth Soln 5 ml Bottle EA EYE SCH ×2 (10:09→21:25)
[2019-11-27] MEDS: Timolol 0.5% Ophth Soln 5 ml Bottle EA EYE SCH ×2 (10:10→21:30)
[2019-11-27] MEDS: Alogliptin 6.25 MG TAB PO SCH (10:23)
[2019-11-27] MEDS: Acetaminophen 500 MG TAB PO PRN ×2 (10:23→17:56)
--- NOTE | 2019-11-27 10:58 | PRG ---
DATE OF SERVICE: 11/27/2019 SERVICE: Renal Medicine. SUBJECTIVE: Mr. Dubon is a 54-year-old male with known history of chronic renal failure and was initiated with hemodialysis due to hyperkalemia and uremic sign and symptoms. During this hospitalization, he was also found to have significant bilateral pleural effusion causing to be short of breath. For this reason, he is undergoing daily dialysis. We have scheduled him again for another dialysis treatment for about 3 hours. My plan is to attempt to max out fluid removal as tolerated by the patient. His shortness of breath is a little better compared yesterday after his dialysis. No complaints of chest pain. OBJECTIVE: VITAL SIGNS: Blood pressure 141/67, heart rate 64, respiratory rate 14, and temperature 98.2. GENERAL: The patient is awake, alert, comfortable, not in distress. SKIN: Adequate turgor. HEENT: He has pinkish conjunctivae. Anicteric sclerae. NECK: No neck mass. No carotid bruits. No JVD. CHEST: No deformities. LUNGS: Clear breath sounds. HEART: Normal sinus rhythm. No murmurs, gallops, or rubs. ABDOMEN: Globular, soft, nontender. No masses. EXTREMITIES: No edema. No deformities. MEDICATIONS: Of November 27, 2019, reviewed. LABORATORY DATA: Of November 27, 2019; white count 8.2, hemoglobin 10.4. Sodium 141, potassium 3.6, chloride 104, carbon dioxide 27, BUN 16, creatinine 4.02, glucose 84, and calcium 8. Hemoglobin 10.4. ASSESSMENT AND PLAN: 1. Shortness of breath/bilateral pleural effusions - we are trying to max out the ultrafiltration/fluid removal with hemodialysis. He was scheduled for another dialysis treatment today. 2. Chronic renal failure/end-stage renal disease. We will plan for 3-hour hemodialysis. Attempt at 3 to 4 L of fluid removal as tolerated by the patient. 3. Anemia. We are continuing weekly Epogen with this patient. P.r.n. blood transfusion. 4. Secondary hyperparathyroidism. Calcitriol 0.25 mcg tablet daily has been started. 5. Recheck CBC and basic metabolic profile in a.m. Job ID: [id number]
[2019-11-27] MEDS: HumaLOG 300 UNITS/3 ML VIAL SC PRN (12:23)
--- NOTE | 2019-11-27 13:53 | PDOC.HOSPP ---
- Subjective Encounter Date: 11/27/19 Encounter Time: 07:00 Subjective: Patient seen in follow-up regarding end-stage renal disease on dialysis. Patient reports feeling better in terms of shortness of breath. - Objective Vital Signs & Weight: Vital Signs (12 hours) Temp Pulse Resp BP Pulse Ox 11/27/19 11:01 97.9 F 66 14 156/74 H 95 11/27/19 10:10 73 11/27/19 07:41 98.2 F 64 14 141/67 H 98 11/27/19 04:00 98.5 F 62 17 131/64 93 L Weight Weight 160 lb 11.2 oz I&O: 11/26/19 11/27/19 11/28/19 06:59 06:59 06:59 Intake Total 680 800 300 Output Total 650 3800 Balance 30 -3000 300 Result Diagrams: 11/27/19 05:00 11/27/19 05:00 Additional Labs: Accuchecks 11/27/19 11/27/19 11/26/19 10:46 06:24 20:33 POC Glucose 172 H 82 102 H 11/26/19 17:03 POC Glucose 175 H I reviewed patient's labs and MAR EKG Reviewed by me: Yes (NSR telemetry) Hospitalist ROS - Review of Systems Cardiovascular: denies: chest pain, palpitations, orthopnea, paroxysmal noc. dyspnea, edema, light headedness Gastrointestinal: denies: nausea, vomiting, abdominal pain, diarrhea, constipation, melena, hematochezia - Medication Medications: Active Medications Generic Name Dose Route Start Last Admin Trade Name Freq PRN Reason Stop Dose Admin Acetaminophen 1,000 mg 11/24/19 16:55 11/27/19 10:23 Acetaminophen 500 Mg Tab PO 1,000 mg Q6H PRN Administration Moderate to Severe Pain (6-10) Alogliptin Benzoate 6.25 mg 11/27/19 09:00 11/27/19 10:23 Alogliptin 6.25 Mg Tab PO 6.25 mg DAILY ERWIN Administration Atorvastatin Calcium 40 mg 11/25/19 09:00 11/27/19 10:08 Atorvastatin Calcium 40 Mg Tab PO 40 mg DAILY ERWIN Administration Brimonidine Tartrate 1 drop 11/25/19 09:00 11/27/19 10:09 Brimonidine Tartrate 0.2% Ophth Soln 5 Ml Bottle EA EYE 1 drop BID ERWIN Administration Calcitriol 0.25 mcg 11/27/19 09:00 11/27/19 10:09 Calcitriol 0.25 Mcg Cap PO 0.25 mcg DAILY ERWIN Administration Epoetin Alireza-epbx 7,500 unit 11/26/19 12:00 11/26/19 14:11 Epoetin Alireza-Epbx (Esrd) 4,000 Unit/Ml Vial SC 7,500 unit Q7D ERWIN Administration Ferrous Sulfate 325 mg 11/26/19 17:00 11/27/19 10:09 Ferrous Sulfate 325 Mg Tab PO 325 mg BID-WM ERWIN Administration Insulin Human Lispro 0 units 11/25/19 15:20 11/27/19 12:23 Humalog 300 Units/3 Ml Vial SC 2 unit .MILD SLIDING SCALE PRN Administration Mild Correctional Scale Latanoprost 1 drop 11/26/19 21:00 11/26/19 20:23 Latanoprost 0.005% Ophth Soln 2.5 Ml Bottle L EYE 1 drop HS ERWIN Administration Nifedipine 90 mg 11/25/19 09:00 11/26/19 14:09 Nifedipine Xl 90 Mg Tab PO 90 mg DAILY ERWIN Administration Sodium Chloride 10 ml 11/26/19 21:00 11/27/19 10:11 Flush - Normal Saline 10 Ml Syringe IVF 10 ml Q12HR ERWIN Administration Timolol Maleate 1 drop 11/25/19 09:00 11/27/19 10:10 Timolol 0.5% Ophth Soln 5 Ml Bottle EA EYE 1 drop BID ERWIN Administration - Exam General Appearance: awake alert Eye: anicteric sclera ENT: moist mucosa Neck: supple Heart: RRR Respiratory: CTAB Gastrointestinal: soft, non-tender Extremities: no cyanosis Psychiatric: normal affect Hosp A/P (1) End-stage renal disease needing dialysis Code(s): N18.6 - END STAGE RENAL DISEASE; Z99.2 - DEPENDENCE ON RENAL DIALYSIS Status: Acute (2) Pleural effusion Code(s): J90 - PLEURAL EFFUSION, NOT ELSEWHERE CLASSIFIED Status: Acute (3) Diabetes mellitus type 2 in nonobese Code(s): E11.9 - TYPE 2 DIABETES MELLITUS WITHOUT COMPLICATIONS Status: Chronic (4) Dyslipidemia Code(s): E78.5 - HYPERLIPIDEMIA, UNSPECIFIED Status: Chronic (5) Hypertension Code(s): I10 - ESSENTIAL (PRIMARY) HYPERTENSION Status: Chronic - Plan Nephrology following for dialysis. Shortness of breath improving. Continue PRN IV hydralazine for blood pressure spikes. Continue statin. Continue Januvia. Continue Accu-Cheks and insulin sliding scale.
[2019-11-27] MEDS: NIFEdipine XL 90 MG TAB PO SCH (18:06)
[2019-11-27] MEDS ORDERED: NIFEdipine XL 90 MG TAB PO SCH (21:00)
[2019-11-27] MEDS: Latanoprost 0.005% Ophth Soln 2.5 ml Bottle L EYE SCH (21:37)
[2019-11-28 07:04] LABS: #Eosinphils 0.2 thou/uL (0.0-0.7); #Lymphocytes 2.5 thou/uL (1.20-3.40); #Monocytes 0.8 thou/uL (0.11-0.59); %Basophils 0.5 % (0.0-1.0); %Eosinophils 2.2 % (0.0-10.0); %Lymphocytes 33.2 % (21.0-51.0); %Monocytes 10.5 % (0.0-10.0); %Neutrophils 53.5 % (42.0-75.0); Hemoglobin 11.6 g/dL (14.0-18.0); Mean Corpuscular HGB CONC 33.4 g/dL (32.0-36.0); Mean Corpuscular Hemoglobin 29.7 pg (27.0-31.0); Mean Corpuscular Volume 88.9 fL (78.0-98.0); Mean Platelet Volume 9.3 fL (7.4-10.4); Platelet Count 168 thou/uL (130-400); RBC Distribution Width 11.5 % (11.5-14.5); Red Blood Cell (RBC) Count 3.91 mill/uL (4.70-6.10); White Blood Cell (WBC) Count 7.4 thou/uL (4.8-10.8)
[2019-11-28 07:25] LABS: Anion Gap 13 mmol/L (10-20); BUN (Urea Nitrogen) 15 mg/dL (8.4-25.7); Calc. Creatinine Clearance 24 mL/min (70-130); Calcium 8.2 mg/dL (7.8-10.44); Carbon Dioxide 28 mmol/L (22-29); Chloride 102 mmol/L (98-107); Estimated GFR-MDRD 17; Glucose 100 mg/dL (70-105); Potassium 3.9 mmol/L (3.5-5.1); Sodium 139 mmol/L (136-145)
[2019-11-28] MEDS: Calcitriol 0.25 MCG CAP PO SCH (08:22)
[2019-11-28] MEDS: Atorvastatin Calcium 40 MG TAB PO SCH (08:22)
[2019-11-28] MEDS: Timolol 0.5% Ophth Soln 5 ml Bottle EA EYE SCH ×2 (08:22→20:32)
[2019-11-28] MEDS: Alogliptin 6.25 MG TAB PO SCH (08:22)
[2019-11-28] MEDS: Ferrous Sulfate 325 MG TAB PO SCH ×2 (08:22→16:23)
[2019-11-28] MEDS: Brimonidine Tartrate 0.2% Ophth Soln 5 ml Bottle EA EYE SCH ×2 (08:25→20:26)
--- NOTE | 2019-11-28 09:08 | PRG ---
DATE OF SERVICE: 11/28/2019 SERVICE: Renal Medicine. SUBJECTIVE: Mr. Dubon is a 54-year-old male with chronic renal failure from diabetic nephropathy and was admitted for initiation of dialysis due to hyperkalemia and uremic signs and symptoms. He has been undergoing daily dialysis. He was also found to have significant bilateral pleural effusion. We are attempting to remove this via dialysis. No complaints today. His breathing is a little bit better. Several liters of fluid have been removed with him. Our plan is to do another dialysis session in a.m. We will continue now on the three times a week hemodialysis. No complaints of chest pain or any worsening shortness of breath. OBJECTIVE: VITAL SIGNS: Blood pressure 138/67, heart rate 68, respiratory rate 16, temperature 98.1, O2 saturation is 98%. GENERAL: Noted to be awake, alert, comfortable, not in distress. SKIN: Adequate turgor. HEENT: Pinkish conjunctivae. Anicteric sclerae. NECK: No neck mass. No carotid bruits. No JVD. CHEST: No deformities. LUNGS: Clear breath sounds. No wheezing. No crackles. HEART: Normal sinus rhythm. No murmur. No gallops. No rubs. ABDOMEN: Globular, soft, nontender. No masses. EXTREMITIES: No edema. No deformities. MEDICATIONS: Medications of November 28, 2019, was reviewed. LABORATORY DATA: Of November 28, 2019; white count 7.4, hemoglobin 11.6. Sodium 139, potassium 3.9, chloride 102, carbon dioxide 28, BUN 15, creatinine 3.73, calcium 8.2. ASSESSMENT AND PLAN: 1. Chronic renal failure/end-stage renal disease. We will continue three times a week hemodialysis. Max out fluid removal as tolerated. 2. Bilateral pleural effusion/shortness of breath. Maxing out fluid removal with dialysis. Clinically improving. 3. Chronic anemia. Currently on Epogen and iron supplementation. 4. Secondary hyperparathyroidism. Continue calcitriol 0.25 mcg tablet daily. Currently awaiting outpatient dialysis placement. Job ID: [id number]
[2019-11-28] MEDS: HumaLOG 300 UNITS/3 ML VIAL SC PRN (11:24)
--- NOTE | 2019-11-28 14:33 | PDOC.HOSPP ---
- Subjective Encounter Date: 11/28/19 Encounter Time: 07:30 Subjective: Patient seen in follow-up for end-stage renal disease needing dialysis. Reports feeling better in terms of shortness of breath. Denies any chest pain. - Objective Vital Signs & Weight: Vital Signs (12 hours) Temp Pulse Resp BP BP BP BP 11/28/19 11:24 97.4 F L 67 16 154/74 H 11/28/19 08:22 71 150/74 H 156/72 H 126/66 11/28/19 07:16 98.1 F 68 16 138/67 11/28/19 03:42 97.6 F 60 14 124/64 BP Pulse Ox 11/28/19 11:24 97 11/28/19 08:22 151/74 H 11/28/19 07:16 98 11/28/19 03:42 96 Weight Weight 160 lb 11.2 oz I&O: 11/27/19 11/28/19 11/29/19 06:59 06:59 06:59 Intake Total 800 1150 120 Output Total 3800 3500 Balance -3000 -2350 120 Result Diagrams: 11/28/19 06:50 11/28/19 06:50 Additional Labs: Accuchecks 11/28/19 11/28/19 11/27/19 10:56 05:23 20:46 POC Glucose 233 H 112 H 145 H 11/27/19 17:59 POC Glucose 92 I reviewed patient's labs and MAR EKG Reviewed by me: Yes (Telemetry: Normal sinus rhythm) Hospitalist ROS - Review of Systems Respiratory: reports: SOB with excertion Gastrointestinal: denies: nausea, vomiting, abdominal pain, diarrhea, constipation, melena Genitourinary: denies: dysuria, frequency, incontinence, hematuria, retention - Medication Medications: Active Medications Generic Name Dose Route Start Last Admin Trade Name Freq PRN Reason Stop Dose Admin Acetaminophen 1,000 mg 11/24/19 16:55 11/27/19 17:56 Acetaminophen 500 Mg Tab PO 1,000 mg Q6H PRN Administration Moderate to Severe Pain (6-10) Alogliptin Benzoate 6.25 mg 11/27/19 09:00 11/28/19 08:22 Alogliptin 6.25 Mg Tab PO 6.25 mg DAILY ERWIN Administration Atorvastatin Calcium 40 mg 11/25/19 09:00 11/28/19 08:22 Atorvastatin Calcium 40 Mg Tab PO 40 mg DAILY ERWIN Administration Brimonidine Tartrate 1 drop 11/25/19 09:00 11/28/19 08:25 Brimonidine Tartrate 0.2% Ophth Soln 5 Ml Bottle EA EYE 1 drop BID ERWIN Administration Calcitriol 0.25 mcg 11/27/19 09:00 11/28/19 08:22 Calcitriol 0.25 Mcg Cap PO 0.25 mcg DAILY ERWIN Administration Epoetin Alireza-epbx 7,500 unit 11/26/19 12:00 11/26/19 14:11 Epoetin Alireza-Epbx (Esrd) 4,000 Unit/Ml Vial SC 7,500 unit Q7D ERWIN Administration Ferrous Sulfate 325 mg 11/26/19 17:00 11/28/19 08:22 Ferrous Sulfate 325 Mg Tab PO 325 mg BID-WM ERWIN Administration Insulin Human Lispro 0 units 11/25/19 15:20 11/28/19 11:24 Humalog 300 Units/3 Ml Vial SC 3 unit .MILD SLIDING SCALE PRN Administration Mild Correctional Scale Latanoprost 1 drop 11/26/19 21:00 11/27/19 21:37 Latanoprost 0.005% Ophth Soln 2.5 Ml Bottle L EYE 1 drop HS ERWIN Administration Nifedipine 90 mg 11/27/19 21:00 11/27/19 21:28 Nifedipine Xl 90 Mg Tab PO 90 mg HS ERWIN Administration Sodium Chloride 10 ml 11/26/19 21:00 11/28/19 08:22 Flush - Normal Saline 10 Ml Syringe IVF 10 ml Q12HR ERWIN Administration Timolol Maleate 1 drop 11/25/19 09:00 11/28/19 08:22 Timolol 0.5% Ophth Soln 5 Ml Bottle EA EYE 1 drop BID ERWIN Administration Tramadol HCl 50 mg 11/24/19 16:55 11/27/19 21:28 Tramadol Hcl 50 Mg Tab PO 50 mg Q4H PRN Administration Pain 1-5 - Exam General Appearance: awake alert Eye: scleral icterus ENT: moist mucosa Neck: supple Heart: RRR Respiratory: CTAB Gastrointestinal: soft, non-tender Neurological: no weakness Psychiatric: normal behavior Hosp A/P (1) End-stage renal disease needing dialysis Code(s): N18.6 - END STAGE RENAL DISEASE; Z99.2 - DEPENDENCE ON RENAL DIALYSIS Status: Acute (2) Pleural effusion Code(s): J90 - PLEURAL EFFUSION, NOT ELSEWHERE CLASSIFIED Status: Acute (3) Dyslipidemia Code(s): E78.5 - HYPERLIPIDEMIA, UNSPECIFIED Status: Chronic (4) Hypertension Code(s): I10 - ESSENTIAL (PRIMARY) HYPERTENSION Status: Chronic (5) Diabetes mellitus type 2 in nonobese Code(s): E11.9 - TYPE 2 DIABETES MELLITUS WITHOUT COMPLICATIONS Status: Chronic - Plan Patient has been initiated on dialysis during this admission. Shortness of breath most likely secondary to pleural effusion, improving after started on dialysis. Continue PRN IV hydralazine for blood pressure spikes. Continue statin. Continue Januvia. Continue Accu-Cheks and insulin sliding scale. Increase Procardia XL 220 mg daily. Monitor vital signs and titrate antihypertensives as needed.
[2019-11-28] MEDS ORDERED: NIFEdipine XL 30 MG TAB PO SCH (14:45)
[2019-11-28] MEDS: NIFEdipine XL 60 MG TAB PO SCH (20:26)
[2019-11-28] MEDS: Latanoprost 0.005% Ophth Soln 2.5 ml Bottle L EYE SCH (20:36)
[2019-11-29] MEDS ORDERED: cloNIDine 0.1 MG TAB PO PRN (00:46)
[2019-11-29] MEDS: Ferrous Sulfate 325 MG TAB PO SCH ×2 (05:14→18:37)
[2019-11-29] MEDS: Brimonidine Tartrate 0.2% Ophth Soln 5 ml Bottle EA EYE SCH ×2 (05:14→20:56)
[2019-11-29] MEDS: Atorvastatin Calcium 40 MG TAB PO SCH (05:15)
[2019-11-29] MEDS: Calcitriol 0.25 MCG CAP PO SCH (05:15)
[2019-11-29] MEDS: Timolol 0.5% Ophth Soln 5 ml Bottle EA EYE SCH ×2 (05:15→20:55)
[2019-11-29] MEDS: Alogliptin 6.25 MG TAB PO SCH (07:43)
--- NOTE | 2019-11-29 10:09 | PRG ---
DATE OF SERVICE: 11/29/2019 SUBJECTIVE: Mr. Dubon is a 54-year-old male with chronic renal failure, was admitted due to hyperkalemia and uremic sign and symptoms. He has been initiated on dialysis. He has a cuffed hemodialysis catheter placed. He is due for hemodialysis today. Fluid removal is being done with this patient due to finding of significant bilateral pleural effusion. No new complaints today. Shortness of breath is actually improved. OBJECTIVE: VITAL SIGNS: Blood pressure is noted at 115/58, heart rate 64, respiratory rate 16, temperature 98, O2 saturation 99%. GENERAL: The patient is awake, alert, comfortable, not in overt distress. SKIN: Adequate turgor. HEENT: He has pinkish conjunctivae. Anicteric sclerae. NECK: No neck mass. No carotid bruits. No JVD. CHEST: No deformities. LUNGS: Decreased breath sounds. HEART: Normal sinus rhythm. No murmurs, gallops, or rubs. ABDOMEN: Globular, soft nontender, no masses. EXTREMITIES: No edema, no deformities. MEDICATIONS: Medications of November 29, 2019. LABORATORY DATA: Laboratories of November 28, 2019; white count 7.4, hemoglobin 11.6. November 29, 2019, glucose 140. November 28, 2019 potassium 3.9, BUN 15, creatinine 3.73. ASSESSMENT AND PLAN: 1. Chronic renal failure/end-stage renal disease, continuing 3 times per week hemodialysis. 2. Again max out fluid removal as tolerated. 3. The patient has significant bilateral pleural effusion. 4. Shortness of breath - secondary to bilateral pleural effusion, maxing out fluid removal with dialysis. 5. Type 2 diabetes mellitus, stable, managed by the hospitalist. 6. We are currently awaiting outpatient dialysis placement. Job ID: [id number]
--- NOTE | 2019-11-29 13:15 | PDOC.HOSPP ---
- Subjective Encounter Date: 11/29/19 Encounter Time: 08:00 Subjective: Patient seen for follow-up for pleural effusion. Feels better. - Objective Vital Signs & Weight: Vital Signs (12 hours) Temp Pulse Resp BP BP Pulse Ox 11/29/19 11:39 98.2 F 64 16 126/79 99 11/29/19 07:31 98 F 64 16 115/58 L 99 11/29/19 04:00 97.7 F 66 18 140/72 98 Weight Weight 160 lb 11.2 oz I&O: 11/28/19 11/29/19 11/30/19 06:59 06:59 06:59 Intake Total 1150 1430 Output Total 3500 Balance -2350 1430 Result Diagrams: 11/28/19 06:50 11/28/19 06:50 Additional Labs: Accuchecks 11/29/19 11/29/19 11/28/19 10:45 06:16 21:38 POC Glucose 110 H 140 H 212 H 11/28/19 16:40 POC Glucose 141 H I reviewed patient's labs and MAR EKG Reviewed by me: Yes (Telemetry: NSR) Hospitalist ROS - Review of Systems Respiratory: denies: cough, shortness of breath, SOB with excertion, pleuritic pain, wheezing Gastrointestinal: denies: nausea, vomiting, abdominal pain, diarrhea, constipation, melena, hematochezia - Medication Medications: Active Medications Generic Name Dose Route Start Last Admin Trade Name Freq PRN Reason Stop Dose Admin Acetaminophen 1,000 mg 11/24/19 16:55 11/27/19 17:56 Acetaminophen 500 Mg Tab PO 1,000 mg Q6H PRN Administration Moderate to Severe Pain (6-10) Alogliptin Benzoate 6.25 mg 11/27/19 09:00 11/29/19 07:43 Alogliptin 6.25 Mg Tab PO Not Given DAILY ERWIN Atorvastatin Calcium 40 mg 11/25/19 09:00 11/29/19 05:15 Atorvastatin Calcium 40 Mg Tab PO 40 mg DAILY ERWIN Administration Brimonidine Tartrate 1 drop 11/25/19 09:00 11/29/19 05:14 Brimonidine Tartrate 0.2% Ophth Soln 5 Ml Bottle EA EYE 1 drop BID ERWIN Administration Calcitriol 0.25 mcg 11/27/19 09:00 11/29/19 05:15 Calcitriol 0.25 Mcg Cap PO 0.25 mcg DAILY ERWIN Administration Clonidine 0.1 mg 11/29/19 00:46 11/29/19 00:57 Clonidine 0.1 Mg Tab PO 0.1 mg Q4H PRN Administration SBP Greater Than 180 Epoetin Alireza-epbx 7,500 unit 11/26/19 12:00 11/26/19 14:11 Epoetin Alireza-Epbx (Esrd) 4,000 Unit/Ml Vial SC 7,500 unit Q7D ERWIN Administration Ferrous Sulfate 325 mg 11/26/19 17:00 11/29/19 05:14 Ferrous Sulfate 325 Mg Tab PO 325 mg BID-WM ERWIN Administration Insulin Human Lispro 0 units 11/25/19 15:20 11/28/19 11:24 Humalog 300 Units/3 Ml Vial SC 3 unit .MILD SLIDING SCALE PRN Administration Mild Correctional Scale Latanoprost 1 drop 11/26/19 21:00 11/28/19 20:36 Latanoprost 0.005% Ophth Soln 2.5 Ml Bottle L EYE 1 drop HS ERWIN Administration Nifedipine 120 mg 11/28/19 21:00 11/28/19 20:26 Nifedipine Xl 60 Mg Tab PO 120 mg HS ERWIN Administration Sodium Chloride 10 ml 11/26/19 21:00 11/29/19 05:15 Flush - Normal Saline 10 Ml Syringe IVF 10 ml Q12HR ERWIN Administration Timolol Maleate 1 drop 11/25/19 09:00 11/29/19 05:15 Timolol 0.5% Ophth Soln 5 Ml Bottle EA EYE 1 drop BID ERWIN Administration Tramadol HCl 50 mg 11/24/19 16:55 11/27/19 21:28 Tramadol Hcl 50 Mg Tab PO 50 mg Q4H PRN Administration Pain 1-5 - Exam General Appearance: awake alert Eye: anicteric sclera ENT: moist mucosa Neck: supple Heart: RRR Respiratory: CTAB Gastrointestinal: soft Skin: no rashes Psychiatric: normal affect, normal behavior Hosp A/P (1) Pleural effusion Code(s): J90 - PLEURAL EFFUSION, NOT ELSEWHERE CLASSIFIED Status: Acute (2) End-stage renal disease needing dialysis Code(s): N18.6 - END STAGE RENAL DISEASE; Z99.2 - DEPENDENCE ON RENAL DIALYSIS Status: Acute (3) Dyslipidemia Code(s): E78.5 - HYPERLIPIDEMIA, UNSPECIFIED Status: Chronic (4) Hypertension Code(s): I10 - ESSENTIAL (PRIMARY) HYPERTENSION Status: Chronic (5) Diabetes mellitus type 2 in nonobese Code(s): E11.9 - TYPE 2 DIABETES MELLITUS WITHOUT COMPLICATIONS Status: Chronic - Plan Patient's oxygenation has improved significantly. Repeat chest x-ray to evaluate pleural effusion. Patient has been initiated on dialysis during this admission, awaiting outpatient dialysis chair. Continue statin. Continue Januvia. Continue Accu-Cheks and insulin sliding scale. Hypertension controlled.
[2019-11-29] MEDS ORDERED: PROPOFOL 200 MG/20 ML VIAL ONE (13:40)
[2019-11-29] MEDS ORDERED: Bupivacaine HCl 0.5%/Epinephrine 1:200,000/PF 30 ml Vial ONE (13:52)
[2019-11-29] MEDS ORDERED: Heparin 10,000 UNITS/ 10 ML VIAL ONE (13:53)
[2019-11-29] MEDS ORDERED: Fentanyl 100 MCG/2 ML VIAL ONE (13:56)
[2019-11-29] MEDS ORDERED: Lidocaine 2% PF 5 ML VIAL ONE (13:56)
[2019-11-29] MEDS ORDERED: Sodium Chloride 0.9% 0 ML ONE (13:56)
[2019-11-29] MEDS ORDERED: Propofol 500 MG/50 ML VIAL ONE (13:56)
--- NOTE | 2019-11-29 14:18 | EKG ---
Test Reason : C/O CHEST PAIN Blood Pressure : / mmHG Vent. Rate : 049 BPM Atrial Rate : 049 BPM P-R Int : 154 ms QRS Dur : 098 ms QT Int : 508 ms P-R-T Axes : 016 050 043 degrees QTc Int : 458 ms Marked sinus bradycardia Cannot rule out Anterior infarct , age undetermined Cannot exclude Inferior infarct , age undetermined Abnormal ECG Confirmed by NEVA CALDWELL ([id number]) on 11/29/2019 2:17:55 PM Referred By: VIVIENNE Confirmed By:NEVA CALDWELL
[2019-11-29] MEDS: NIFEdipine XL 60 MG TAB PO SCH (20:54)
[2019-11-29] MEDS: Latanoprost 0.005% Ophth Soln 2.5 ml Bottle L EYE SCH (20:56)
[2019-11-29] MEDS ORDERED: HumaLOG 300 UNITS/3 ML VIAL SC PRN (21:44)
--- NOTE | 2019-11-29 21:56 | RAD ---
Exam: Chest one view HISTORY:Shortness of breath Comparison: 11/25/2019 FINDINGS: Lines and tubes: Stable right-sided HemoSplit dialysis catheter and left-sided internal jugular vascu lar catheter. Cardiac silhouette:Enlarged. Stable sternotomy wires Aorta: Unremarkable Pulmonary vessels: Normal Costophrenic angles: Decreased but persistent small right-sided pleural effusion LUNGS: Parenchymal changes in the right lung base may represent atelectasis, pneumonia or aspiration. Pneumothorax: None Osseous abnormalities: None IMPRESSION: 1. Improved aeration of the right lung. Residual pleural and parenchymal changes do remain. Continued surveillance is recommended.
[2019-11-30 04:42] LABS: #Eosinphils 0.2 thou/uL (0.0-0.7); #Lymphocytes 2.5 thou/uL (1.20-3.40); #Monocytes 0.8 thou/uL (0.11-0.59); #Neutrophils 2.6 thou/uL (1.40-6.50); %Basophils 0.3 % (0.0-1.0); %Eosinophils 3.3 % (0.0-10.0); %Lymphocytes 40.9 % (21.0-51.0); %Monocytes 13.5 % (0.0-10.0); %Neutrophils 41.9 % (42.0-75.0); Hemoglobin 11.2 g/dL (14.0-18.0); Mean Corpuscular HGB CONC 33.6 g/dL (32.0-36.0); Mean Corpuscular Hemoglobin 29.6 pg (27.0-31.0); Mean Corpuscular Volume 88.1 fL (78.0-98.0); Mean Platelet Volume 8.6 fL (7.4-10.4); Platelet Count 196 thou/uL (130-400); RBC Distribution Width 11.5 % (11.5-14.5); Red Blood Cell (RBC) Count 3.78 mill/uL (4.70-6.10); White Blood Cell (WBC) Count 6.1 thou/uL (4.8-10.8)
[2019-11-30 05:42] LABS: Anion Gap 13 mmol/L (10-20); BUN (Urea Nitrogen) 13 mg/dL (8.4-25.7); Calc. Creatinine Clearance 32 mL/min (70-130); Calcium 8.1 mg/dL (7.8-10.44); Carbon Dioxide 27 mmol/L (22-29); Chloride 100 mmol/L (98-107); Estimated GFR-MDRD 24; Glucose 111 mg/dL (70-105); Potassium 3.4 mmol/L (3.5-5.1); Sodium 137 mmol/L (136-145)
--- NOTE | 2019-11-30 05:48 | OP ---
DATE OF PROCEDURE: 11/29/2019 PREOPERATIVE DIAGNOSES: End-stage renal disease, dislodged hemodialysis catheter, cuff extruded. POSTOPERATIVE DIAGNOSIS: Normal hemodialysis catheter, without cuff extruded. ANESTHESIA: Intravenous sedation. PROCEDURE PERFORMED: Examination of hemodialysis catheter cuff. No operative procedure performed. HISTORY: A 54-year-old male patient with good thrill and bruit in his right arm fistula placed last week. When I saw him last , it looked as though his hemodialysis cuff was outside the skin. I viewed that this morning prior to going back to the operating room. I viewed it through the dressings. Once in the operating room, the dressings removed. The catheter looked normal. The cuff was where it should be, below the skin. No operative procedure was necessary, and a new dressing, CHG applied to the hemodialysis catheter exit site. The patient tolerated the procedure well and will be resumed on his diet and sent back for hemodialysis. Job ID: [id number]
[2019-11-30] MEDS: Ferrous Sulfate 325 MG TAB PO SCH (09:21)
[2019-11-30] MEDS: Alogliptin 6.25 MG TAB PO SCH (09:21)
[2019-11-30] MEDS: Brimonidine Tartrate 0.2% Ophth Soln 5 ml Bottle EA EYE SCH (09:21)
[2019-11-30] MEDS: Atorvastatin Calcium 40 MG TAB PO SCH (09:21)
[2019-11-30] MEDS: Calcitriol 0.25 MCG CAP PO SCH (09:21)
--- NOTE | 2019-11-30 09:21 | PRG ---
DATE OF SERVICE: SUBJECTIVE: Mr. Dubon is a 54-year-old male with chronic renal failure from diabetic nephropathy, was admitted for initiation of dialysis due to the hyperkalemia and uremic sign and symptoms. In the interim, he has had an AV fistula placed and a cuffed hemodialysis catheter placed by Dr. Sanon. He is doing well. No new complaints. No chest pain or shortness of breath. He has been undergoing dialysis without any difficulty. OBJECTIVE: VITAL SIGNS: Blood pressure 124/61, heart rate 68, respiratory rate 16, temperature 98.4, and O2 saturation 98%. GENERAL: The patient is awake, alert, comfortable, not in distress. SKIN: Adequate turgor. HEENT: Pinkish conjunctivae. Anicteric sclerae. NECK: No neck mass. No carotid bruits. No JVD. CHEST: No deformities. LUNGS: Clear breath sounds. HEART: Normal sinus rhythm. No murmurs, gallops, or rubs. ABDOMEN: Globular, soft, nontender. No masses. EXTREMITIES: No edema. No deformities. MEDICATIONS: Medications of November 30, 2019, reviewed. LABORATORY DATA: Laboratories of November 30, 2019; white count 6.1, hemoglobin 11.2. Sodium 137, potassium 3.4, chloride 100, carbon dioxide 27, BUN 13, creatinine 2.77, glucose 111, calcium 8.1. ASSESSMENT AND PLAN: 1. Chronic renal failure/end-stage renal disease-secondary to diabetic nephropathy, continuing 3 times a week hemodialysis. Again, fluid removal as tolerated by this patient. 2. Shortness of breath-the patient has significant pleural effusion. We are again maxing out fluid removal with dialysis. 3. Anemia. Continue Epogen. 4. Secondary hyperparathyroidism. Continue calcitriol. Awaiting outpatient dialysis treatment. Job ID: [id number]
[2019-11-30] MEDS: Timolol 0.5% Ophth Soln 5 ml Bottle EA EYE SCH (09:22)
[2019-11-30] MEDS: HumaLOG 300 UNITS/3 ML VIAL SC PRN (13:52)
[2019-11-30 15:37] VITALS: BP 138/65; TEMP 98.2
--- NOTE | 2019-11-30 15:41 | EKG ---
Test Reason : Blood Pressure : / mmHG Vent. Rate : 052 BPM Atrial Rate : 052 BPM P-R Int : 132 ms QRS Dur : 078 ms QT Int : 468 ms P-R-T Axes : -05 036 044 degrees QTc Int : 435 ms Sinus bradycardia Possible Inferior infarct , age undetermined Cannot rule out Anterior infarct , age undetermined Abnormal ECG Confirmed by PARVEEN WINCHESTER, MARY CARMEN ([id number]), state editor EMILIE GILLETTE ([id number]) on 11/30/2019 3:41:11 PM Referred By: Confirmed By:MARY CARMEN SAINI MD
--- NOTE | 2019-12-01 00:38 | DIS ---
DATE OF ADMISSION: 11/24/2019 DATE OF DISCHARGE: 11/30/2019 PRIMARY CARE PROVIDER: Dr. Danial Hurst. DISCHARGE DIAGNOSES: 1. End-stage renal disease, needing dialysis. 2. Metabolic acidosis secondary to uremia. 3. Hyperkalemia. 4. Right pleural effusion. 5. Chronic anemia. 6. Hypokalemia. 7. Acute hypoxic respiratory failure. CONDITION OF PATIENT ON THE DAY OF DISCHARGE: Stable. I assessed Mr. Dubon on the day of discharge. He denies any chest pain or shortness of breath. Vital signs are stable. S1 and S2 are heard, regular. Lungs are clear to auscultation bilaterally. CONSULTATIONS DURING THIS HOSPITALIZATION: 1. General Surgery, Dr. Sanon. 2. Nephrology, Dr. Jain. HOSPITAL COURSE: Mr. Dubon is a pleasant 54-year-old gentleman who was admitted to [facility] on November 24, 2019, for end-stage renal disease, needing dialysis. Please refer to my history and physical note dated November 24, 2019, for further details. He was seen by General Surgery and Nephrology Services. On November 23, he underwent right IJ cuffed tunneled hemodialysis catheter, left IJ central line triple-lumen. He was initiated on emergent hemodialysis. The following day, he had shortness of breath and was tachycardic. CT angiogram of the chest showed large right and moderate left pleural effusion with prominent atelectatic changes in both bases. He also had air bronchograms and right middle lobe parenchymal changes, probably also on the basis of atelectasis. There was no CT evidence for pulmonary embolism. He had mildly distended gallbladder with questionable small stones. He was hypoxic, needing supplemental oxygen. On November 25, 2019, he underwent right arm primary fistula, perforating branch antecubital vein to the proximal radial artery. He will likely need a basilic vein transposition fistula in the future. He continued to receive maintenance dialysis and improved clinically. He was weaned off supplemental oxygen. Followup chest x-ray showed improvement. He is being discharged after arrangements were made for outpatient dialysis chair on Thursday, and Thursday. DISCHARGE MEDICATIONS: 1. His Procardia XL dose was increased to 120 mg at bedtime. 2. He has been started on ferrous sulfate 325 mg 2 times a day and calcitriol 0.25 mcg daily. Otherwise, no change was made to his pre-admission home medications. POST ACUTE CARE FOLLOWUP: With primary care provider in [address] Sanon in 3 to 4 weeks. ACTIVITY: As tolerated. DIET: Heart healthy and renal. DISCHARGE DESTINATION: Home. TIME SPENT: Total amount of time spent coordinating this discharge: 33 minutes. Job ID: [id number]
== END 2019-11-30 18:20 | disposition home or self-care (01) | DRG 628 ==
LOC: ERS 11:06 → SDC 15:44 → 2SE 20:04
PROVIDERS: ADMIT Specialist; ATTEND Specialist
PROC: 0JH63XZ Insertion of Tunneled Vascular Access Device into Chest Subcutaneous Tissue and Fascia, Percutaneous Approach (ICD-10-PCS; principal; 2019-11-24)
PROC: 02H633Z Insertion of Infusion Device into Right Atrium, Percutaneous Approach (ICD-10-PCS; 2019-11-24)
PROC: B548ZZA Ultrasonography of Superior Vena Cava, Guidance (ICD-10-PCS; 2019-11-24)
PROC: 02HV33Z Insertion of Infusion Device into Superior Vena Cava, Percutaneous Approach (ICD-10-PCS; 2019-11-24)
PROC: 5A1D70Z Performance of Urinary Filtration, Intermittent, Less than 6 Hours Per Day (ICD-10-PCS; 2019-11-24)
PROC: 031B0ZF Bypass Right Radial Artery to Lower Arm Vein, Open Approach (ICD-10-PCS; 2019-11-25)
PROC: 5A1D70Z Performance of Urinary Filtration, Intermittent, Less than 6 Hours Per Day (ICD-10-PCS; 2019-11-25)
PROC: 5A1D70Z Performance of Urinary Filtration, Intermittent, Less than 6 Hours Per Day (ICD-10-PCS; 2019-11-26)
PROC: 5A1D70Z Performance of Urinary Filtration, Intermittent, Less than 6 Hours Per Day (ICD-10-PCS; 2019-11-29)
DX: E87.5 Hyperkalemia (principal); N18.6 End stage renal disease; J96.01 Acute respiratory failure with hypoxia; I12.0 Hypertensive chronic kidney disease with stage 5 chronic kidney disease or end stage renal disease; N25.81 Secondary hyperparathyroidism of renal origin; J90 Pleural effusion, not elsewhere classified; T82.42XA Displacement of vascular dialysis catheter, initial encounter; E87.2 Acidosis; H54.61 Unqualified visual loss, right eye, normal vision left eye; E78.5 Hyperlipidemia, unspecified; D64.9 Anemia, unspecified; E11.21 Type 2 diabetes mellitus with diabetic nephropathy; I25.10 Atherosclerotic heart disease of native coronary artery without angina pectoris; E11.22 Type 2 diabetes mellitus with diabetic chronic kidney disease; Z95.0 Presence of cardiac pacemaker; I25.2 Old myocardial infarction; Z79.899 Other long term (current) drug therapy; Z79.82 Long term (current) use of aspirin; Y83.9 Surgical procedure, unspecified as the cause of abnormal reaction of the patient, or of later complication, without mention of misadventure at the time of the procedure
CPT/HCPCS: 36415; 36416; 71045; 71275; 80048; 80053; 82553; 82805; 83880; 83970; 84100; 84484; 85025; 85379; 86580; 86704; 86706; 86803; 87340; 90935; 93005; 93010; 93970; C1752; G0257; J0690; J1642; J1644; J2001; J2250; J2704; J2720; J3010; Q5105; Q9967; S0020; U0002

== ENCOUNTER 2020-01-06 06:27 | Outpatient (CLI) | payer MEDICARE ==
[2020-01-06 13:40] LABS: #Eosinphils 0.2 10x3/uL (0.0-0.5); #Monocytes 0.7 10x3/uL (0.0-1.1); #Neutrophils 4.5 10x3/uL (1.5-8.4); %Basophils 0.4 % (0.0-2.0); %Eosinophils 2.5 % (0.0-6.0); %Monocytes 7.8 % (0.0-10.0); Hemoglobin 13.2 g/dL (14.0-18.0); Mean Corpuscular HGB CONC 33.7 G/DL (32.0-36.0); Mean Corpuscular Hemoglobin 28.7 PG (27.0-33.0); Mean Corpuscular Volume 85.2 fl (80.0-100.0); Mean Platelet Volume 10.3 fl (7.4-10.4); Platelet Count 293 10x3/uL (130-400); White Blood Cell (WBC) Count 9.1 10x3/uL (4.5-11.0)
[2020-01-06 14:09] LABS: Anion Gap 22 mmol/L (10-20); BUN (Urea Nitrogen) 38 mg/dL (8.4-25.7); Calc. Creatinine Clearance 0 mL/min (70-130); Calcium 8.6 mg/dL (7.8-10.44); Carbon Dioxide 21 mmol/L (22-29); Chloride 98 mmol/L (98-107); Estimated GFR-MDRD 10; Glucose 190 mg/dL (70-105); Potassium 5.4 mmol/L (3.5-5.1); Sodium 136 mmol/L (136-145)
[2020-01-07 20:28] LABS: SARS-CoV-2 MS2 Positive; SARS-CoV-2 N Gene Negative; SARS-CoV-2 S Gene Negative; SARS-CoV-2 by NAA Not Detected (NotDetected); SARS-CoV-2 orf1ab Negative
--- NOTE | 2020-01-10 06:58 | EKG ---
Test Reason : Blood Pressure : / mmHG Vent. Rate : 066 BPM Atrial Rate : 066 BPM P-R Int : 132 ms QRS Dur : 098 ms QT Int : 402 ms P-R-T Axes : 018 079 036 degrees QTc Int : 421 ms Normal sinus rhythm When compared with ECG of 25-NOV-2019 13:31, No significant change was found Confirmed by ALLEGRA TRAN MD ([id number]) on 01/10/2020 6:57:50 AM Referred By: LUCERO Confirmed By:ALLEGRA TRAN MD
== END 2020-01-06 06:28 | disposition home or self-care (01) ==
LOC: LABBT 06:27
PROVIDERS: ATTEND Specialist
DX: Z01.812 Encounter for preprocedural laboratory examination (principal); Z20.828 Contact with and (suspected) exposure to other viral communicable diseases; N18.6 End stage renal disease
CPT/HCPCS: 80048; 85025; 93005; U0003; 87635; 93010

== ENCOUNTER 2020-01-11 11:41 | Day surgery (SDC) | payer MEDICARE ==
--- NOTE | 2020-01-10 08:55 | HP ---
HISTORY OF PRESENT ILLNESS: Maurice Dubon is a 54-year-old male patient, who has end-stage renal disease, dialysis Thursday, , and Thursday at [facility], has a right arm basilic vein fistula that at the time of formation November 25, 2019, was noted that the cephalic vein was occluded and he would need a BVTF. Plan is BVTF, IV sedation, regional anesthesia versus general per Anesthesia choice, outpatient, IV access, blood draws, dialysis catheter. He understands risks and benefits, consents. Plan this January 10. ALLERGIES: NONE. SOCIAL HISTORY: Tobacco, none. Alcohol, none. PAST SURGICAL HISTORY: Coronary artery bypass graft in 2014 in [place]. PAST MEDICAL HISTORY: Type 2 diabetes mellitus; coronary artery disease, stable; end-stage renal disease, on maintenance dialysis, on disability. Lives with his brother, optimized visual impairment. Dr. Hurst, primary care physician in [place]. PHYSICAL EXAMINATION: VITAL SIGNS: Blood pressure 149/71, pulse 65, temperature 97 degrees, 135 pounds, 68 inches. HEAD, EARS, EYES, NOSE, AND THROAT: Unremarkable. LUNGS: Clear to auscultation. CARDIAC: Regular rate and rhythm without murmur or gallop. ABDOMEN: Soft, nontender. EXTREMITIES: Unremarkable. Right arm primary AV fistula, will need a basilic vein fistula outflow basilic vein only. ASSESSMENT AND PLAN: End-stage renal disease in need of basilic vein transposition fistula, right arm, outpatient. He understands risks, benefits, consents. Job ID: [id number]
[~2020-01-11 11:41] MED LIST changes: +Bupivacaine HCl 0.5%/Epinephrine 1:200,000/PF 30 ml Vial ONE; -EPHEDRINE 25 MG/5 ML SYRINGE ONE; -Heparin 10,000 UNITS/ 10 ML VIAL ONE; -PROPOFOL 200 MG/20 ML VIAL ONE; +ePHEDrine 50 MG/ML VIAL ONE
[2020-01-11] MEDS ORDERED: Fentanyl 100 MCG/2 ML VIAL ONE ×2 (13:09→13:41)
[2020-01-11] MEDS ORDERED: Heparin 5,000 UNITS/ML VIAL ONE (13:31)
[2020-01-11] MEDS ORDERED: Protamine Sulfate 50 MG/5 ML VIAL ONE (13:31)
[2020-01-11] MEDS ORDERED: Lidocaine 1% w/Epinephrine 1:100K 20 ML VIAL ONE (13:31)
[2020-01-11] MEDS ORDERED: Bupivacaine PF 0.5% 30 ML VIAL ONE (13:31)
[2020-01-11] MEDS ORDERED: Propofol 500 MG/50 ML VIAL ONE (13:41)
[2020-01-11] MEDS ORDERED: Ketamine 50 MG/ML (10ML VIAL) ONE (13:41)
[2020-01-11] MEDS ORDERED: Midazolam HCl 2 mg/2 ml Vial ONE (13:41)
[2020-01-11] MEDS ORDERED: Heparin 1,000 UNITS/ML VIAL ONE (15:53)
--- NOTE | 2020-01-11 17:31 | OP ---
DATE OF PROCEDURE: 01/11/2020 PREOPERATIVE DIAGNOSES: 1. End-stage renal disease. 2. Occluded cephalic vein, right upper arm. POSTOPERATIVE DIAGNOSES: 1. End-stage renal disease. 2. Occluded cephalic vein, right upper arm. PROCEDURE PERFORMED: Right arm basilic vein transposition fistula. ANESTHESIA: Regional, TIVA. DESCRIPTION OF PROCEDURE: Patient was taken to the operating room, where under regional anesthesia and intravenous sedation, right upper extremity was prepared with ChloraPrep and draped in routine fashion. Incision was made from the proximal volar forearm to the axilla, carried to the skin, subcutaneous tissue, deep fascia, mobilizing the basilic vein free from the underlying nerves keeping them free of harm. Branches divided between 4-0 silk ties and clips. Vein marked. A tunnel created with a 12 mm Allyson-Wick tunneler, dividing the basilic vein origin after clamping with vascular clamp, ligating the stump with 6-0 Prolene to and fro locking suture. The vein flushed with heparinized saline solution, connected to the tunneler, brought through the tunnel, flushed with heparinized saline solution, distended nicely. End vein to cephalic vein anastomosis created with continuous suture of 6-0 Prolene after spatulating both ends and ligating the cephalic vein stump with 2-0 silk. The cephalic vein had been mobilized. There was good flow in the fistula. Good hemostasis noted. Patient was given 50 mg of protamine intravenously by Anesthesia. Subcutaneous tissue was approximated with 3-0 Monocryl, skin with som. Surgicel applied to the harvest bed. Good hemostasis noted. Patient tolerated the procedure well. Sterile dressing was applied. Job ID: [id number]
== END 2020-01-11 16:18 | disposition home or self-care (01) ==
LOC: SDC 11:41
PROVIDERS: ATTEND Specialist
PROC: 05S90ZZ Reposition Right Brachial Vein, Open Approach (ICD-10-PCS; principal; 2020-01-11)
DX: E11.22 Type 2 diabetes mellitus with diabetic chronic kidney disease (principal); N18.6 End stage renal disease; I82.611 Acute embolism and thrombosis of superficial veins of right upper extremity; I25.10 Atherosclerotic heart disease of native coronary artery without angina pectoris; Z79.4 Long term (current) use of insulin; Z79.82 Long term (current) use of aspirin; Z79.899 Other long term (current) drug therapy; Z95.1 Presence of aortocoronary bypass graft; Z99.2 Dependence on renal dialysis
CPT/HCPCS: 36416; J0690; J1644; J2250; J2704; J2720; J3010; J3490; S0020